=== PATIENT | male | born 1980 | race Caucasian/White ===

== ENCOUNTER 2018-02-13 17:29 | Emergency (ER) | payer OTHER ==
[~2018-02-13] VITALS: Ht 172.7 cm; Wt 120.2 kg
[2018-02-13] MEDS ORDERED: ATROVASTATIN (17:42)
== END 2018-02-13 18:42 | disposition home or self-care (01) ==
LOC: ER 17:29
DX: M54.32 Sciatica, left side (principal); M25.552 Pain in left hip